=== PATIENT | male | born 2000 | race Caucasian/White ===

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

== ENCOUNTER 2020-05-27 03:21 | Day surgery (SDC) | payer BC, OTHER ==
[2020-05-27] MEDS ORDERED: Ondansetron PF 4 MG/2 ML Vial ONE ×3 (03:43→09:51)
[2020-05-27 03:52] LABS: #Basophils 0.1 thou/uL (0.0-0.2); #Eosinphils 0.3 thou/uL (0.0-0.7); #Lymphocytes 2.2 thou/uL (1.20-3.40); #Monocytes 1.6 thou/uL (0.11-0.59); #Neutrophils 13.4 thou/uL (1.40-6.50); %Basophils 0.3 % (0.0-1.0); %Eosinophils 1.7 % (0.0-10.0); %Lymphocytes 12.6 % (28.0-48.0); %Monocytes 9.2 % (0.0-4.0); %Neutrophils 76.2 % (31.0-61.0); Hemoglobin 14.7 g/dL (14.0-18.0); Mean Corpuscular HGB CONC 32.9 g/dL (32.0-36.0); Mean Corpuscular Volume 91.3 fL (78.0-98.0); Mean Platelet Volume 8.9 fL (7.4-10.4); Platelet Count 156 thou/uL (130-400); RBC Distribution Width 12.4 % (11.5-14.5); White Blood Cell (WBC) Count 17.6 thou/uL (4.8-10.8)
[2020-05-27 03:53] LABS: Bilirubin Negative (Negative); Blood, Urine Negative (Negative); Clarity Clear (Clear); Glucose, Urine (Dipstick) Normal (Negative); Ketone, Urine Negative (Negative); Leukocyte Negative Leu/uL (Negative); Nitrite Negative (Negative); Protein, Urine (Dipstick) 10 mg/dL (Neg-Trace); Specific Gravity, Urine 1.032 (1.002-1.036); Urobilinogen Normal mg/dL (Less than 2)
[2020-05-27] MEDS ORDERED: Morphine 4 MG/ML VIAL ONE (04:07)
[2020-05-27 04:16] LABS: ALT (SGPT) 18 U/L (8-55); AST (SGOT) 15 U/L (10-45); Albumin 4.6 g/dL (3.5-5.0); Alkaline Phosphatase 71 U/L (50-130); Anion Gap 12 mmol/L (10-20); BUN (Urea Nitrogen) 15 mg/dL (8.4-21.0); Bilirubin, Total 0.6 mg/dL (0.2-1.2); Calc. Creatinine Clearance 0 mL/min (70-130); Calcium 9.6 mg/dL (7.8-10.44); Carbon Dioxide 27 mmol/L (22-29); Chloride 104 mmol/L (98-107); Estimated GFR-MDRD Greater than 90; Globulin 2.6 g/dL (2.4-3.5); Glucose 114 mg/dL (70-105); Lipase 19 U/L (8-78); Potassium 3.6 mmol/L (3.5-5.1); Protein, Total 7.2 g/dL (6.0-8.3); Sodium 139 mmol/L (136-145)
[2020-05-27] MEDS ORDERED: diphenhydrAMINE 50 MG/ML VIAL ONE (05:11)
[2020-05-27] MEDS ORDERED: Metoclopramide HCl 10 MG/2 ML VIAL ONE (05:11)
[2020-05-27] MEDS ORDERED: Piperacillin/Tazobactam 3.375 GM VIAL ONE (06:12)
--- NOTE | 2020-05-27 08:18 | PDOC.GSCN ---
Surgery Consult: HPI - Consult details Date: 05/27/20 Time: 08:17 Reason for consult: appendicitis History of present illness: 05/27/20 08:17 19yo male with one day history of abdominal pain. Pain is located in the periumbilical area and characterized as "sharp and stabbing". It is rated 10/10 on a pain scale and is associated with nausea and vomiting. Presented to ER where CT was consistent with acute appendicitis. Surgery Consult: ROS - Review of Systems All systems: 10 systems reviewed and no additional complaints unless stated below. Surgery Consult: PMH Past Medical History: BPD Past Surgical History: Denies - Past Family History Family history: reviewed and not pertinent - Past Social History Smoking Status: Smoker, status unknown Alcohol Use: occasional Drug Use History: marijuana Living Situation: independent Surgery Consult: Exam - Physical Exam General: no distress, moderate pain Eye: normal ocular movement, PERRL ENT: normal mucosa, normal nares Neck: no kody distention, trachea midline Respiratory: clear to auscultation, clear to percussion Abdomen: soft, tender Integumentary: no abnormal pigmentation, no growths Neurologic: normal coordination, normal sensation Musculoskeletal: normal gait, normal posture Psychiatric: memory intact, oriented to time, oriented to person, oriented to place Surgery Consult: Meds - Allergies Allergies/Adverse Reactions: Allergies Allergy/AdvReac Type Severity Reaction Status Date / Time No Known Allergies Allergy Verified 04/09/13 12:54 Surgery Consult: Results - Labs Result Diagrams: 05/27/20 03:35 05/27/20 03:35 Lab results: Laboratory Results WBC 17.6 thou/uL (4.8-10.8) H 05/27/20 03:35 RBC 4.90 mill/uL (4.00-5.20) 05/27/20 03:35 Hgb 14.7 g/dL (14.0-18.0) 05/27/20 03:35 Hct 44.8 % (42.0-52.0) 05/27/20 03:35 MCV 91.3 fL (78.0-98.0) 05/27/20 03:35 MCH 30.0 pg (25.0-35.0) 05/27/20 03:35 MCHC 32.9 g/dL (32.0-36.0) 05/27/20 03:35 RDW 12.4 % (11.5-14.5) 05/27/20 03:35 Plt Count 156 thou/uL (130-400) 05/27/20 03:35 MPV 8.9 fL (7.4-10.4) 05/27/20 03:35 Neutrophils % 76.2 % (31.0-61.0) H 05/27/20 03:35 Lymphocytes % 12.6 % (28.0-48.0) L 05/27/20 03:35 Monocytes % 9.2 % (0.0-4.0) H 05/27/20 03:35 Eosinophils % 1.7 % (0.0-10.0) 05/27/20 03:35 Basophils % 0.3 % (0.0-1.0) 05/27/20 03:35 Neutrophils # 13.4 thou/uL (1.40-6.50) H 05/27/20 03:35 Lymphocytes # 2.2 thou/uL (1.20-3.40) 05/27/20 03:35 Monocytes # 1.6 thou/uL (0.11-0.59) H 05/27/20 03:35 Eosinophils # 0.3 thou/uL (0.0-0.7) 05/27/20 03:35 Basophils # 0.1 thou/uL (0.0-0.2) 05/27/20 03:35 Sodium 139 mmol/L (136-145) 05/27/20 03:35 Potassium 3.6 mmol/L (3.5-5.1) 05/27/20 03:35 Chloride 104 mmol/L (98-107) 05/27/20 03:35 Carbon Dioxide 27 mmol/L (22-29) 05/27/20 03:35 Anion Gap 12 mmol/L (10-20) 05/27/20 03:35 BUN 15 mg/dL (8.4-21.0) 05/27/20 03:35 Creatinine 0.85 mg/dL (0.7-1.3) 05/27/20 03:35 Estimated GFR (MDRD) Greater than 90 05/27/20 03:35 Glucose 114 mg/dL (70-105) H 05/27/20 03:35 Calcium 9.6 mg/dL (7.8-10.44) 05/27/20 03:35 Total Bilirubin 0.6 mg/dL (0.2-1.2) 05/27/20 03:35 AST 15 U/L (10-45) 05/27/20 03:35 ALT 18 U/L (8-55) 05/27/20 03:35 Alkaline Phosphatase 71 U/L (50-130) 05/27/20 03:35 Serum Total Protein 7.2 g/dL (6.0-8.3) 05/27/20 03:35 Albumin 4.6 g/dL (3.5-5.0) 05/27/20 03:35 Globulin 2.6 g/dL (2.4-3.5) 05/27/20 03:35 Albumin/Globulin Ratio 1.8 g/dL (1.2-2.2) 05/27/20 03:35 Lipase 19 U/L (8-78) 05/27/20 03:35 Urine Color Yellow (Yellow) 05/27/20 03:33 Urine Clarity Clear (Clear) 05/27/20 03:33 Urine pH 6.0 (5.0-9.0) 05/27/20 03:33 Ur Specific [place] 1.032 (1.002-1.036) 05/27/20 03:33 Urine Protein 10 mg/dL (Neg-Trace) 05/27/20 03:33 Urine Glucose (UA) Normal mg/dL (Negative) 05/27/20 03:33 Urine Ketones Negative mg/dL (Negative) 05/27/20 03:33 Urine Blood Negative (Negative) 05/27/20 03:33 Urine Nitrite Negative (Negative) 05/27/20 03:33 Urine Bilirubin Negative (Negative) 05/27/20 03:33 Urine Urobilinogen Normal mg/dL (Less than 2) 05/27/20 03:33 Ur Leukocyte Esterase Negative Riley/uL (Negative) 05/27/20 03:33 - Radiology Interpretation CT scan - abdomen Additional comments: Difficult exam due to lack of intraperitoneal fat. Dilated appendix with small amount of free fluid c/w acute appendicitis. Surgery Consult: A/P - Problem (1) Acute appendicitis Current Visit: Yes Code(s): K35.80 - UNSPECIFIED ACUTE APPENDICITIS Status: Acute - Plan Plan: 19yo male with uncomplicated appendicitis. Plan for laparoscopic appendectomy this morning. The relative risks and benefits of surgical management have been discussed in detail, specifically adressing the risks of abscess and damage to adjacent structures. Informed consent was obtained.
[2020-05-27] MEDS ORDERED: Fentanyl 100 MCG/2 ML VIAL ONE (08:24)
[2020-05-27] MEDS ORDERED: HYDROmorphone 0.5 MG/0.5 ML SYRINGE ONE (08:25)
[2020-05-27] MEDS ORDERED: Bupivacaine 0.25% HCL 30 ML VIAL ONE (08:26)
[2020-05-27] MEDS ORDERED: Lidocaine 1% w/Epinephrine 1:100K 20 ML VIAL ONE (08:26)
--- NOTE | 2020-05-27 09:10 | CT ---
CT OF THE ABDOMEN AND PELVIS WITH IV CONTRAST: INDICATION: A 19-year-old male with nausea, vomiting, and right lower quadrant abdominal pain. FINDINGS: ABDOMEN: Lung bases are clear. No focal hepatic lesion is evident. There is mild gallbladder wall thickening. The pancreas, spleen, and adrenal glands are normal-appearing. The kidneys are normal-appearing. PELVIS: A small amount of enteric contrast is seen at the level of the stomach. There are numerous unopacifi ed loops of small bowel within the abdomen limiting evaluation of the appendix. The appendix in the right lower quadrant of the abdomen measuring up to 8.9 mm on image 8 of series 2 and on image 66 of the coronal series. There is a suspected appendicolith at the base of the appendix measuring 7.5 mm. There is mild free fluid in the pelvis. The bladder is decompressed. The rectum and perirectal sof t tissues are unremarkable-appearing. OSSEOUS STRUCTURES: There is leftward curvature of the lumbar spine which may be related to spasm or mild scoliotic curva ture. No acute osseous abnormality is evident. IMPRESSION: Suspected appendicolith and dilatation of the appendix in the right lower quadrant of the abdomen is suspicious for acute appendicitis. Would recommend correlation with clinical examination. Exam deta il of the appendix is somewhat limited due to limited enteric contrast. There are numerous loops of non-opacified small bowel within the abdomen and pelvis. POS: BH
[2020-05-27] MEDS ORDERED: PROPOFOL 200 MG/20 ML VIAL ONE (09:51)
[2020-05-27] MEDS ORDERED: Dexamethasone 20 MG/5 ML VIAL ONE (09:51)
[2020-05-27] MEDS ORDERED: Rocuronium Bromide 10 MG/ML (10ML VIAL) ONE (09:51)
[2020-05-27] MEDS ORDERED: Glycopyrrolate 0.2 MG/ML 5 ML SYRINGE ONE (09:51)
[2020-05-27] MEDS ORDERED: Lidocaine 1% PF 5 ML VIAL ONE (09:51)
[2020-05-27] MEDS ORDERED: Iopamidol 370 76% 100 ML VIAL ONE (11:21)
--- NOTE | 2020-05-27 11:26 | PDOC.OP ---
Operative Note - Operative Note Operative Note: DATE OF SURGERY: 03/27/2020 SURGEON: Jonah Celeste MD PREOPERATIVE DIAGNOSIS: Acute appendicitis without abscess POSTOPERATIVE DIAGNOSIS: Acute appendicitis without abscess PROCEDURE: Laparoscopic appendectomy INDICATIONS: 19-year-old male with a 1 day history of abdominal pain associated with nausea and vomiting. Their work-up was consistent with acute appendicitis. The relative risks and benefits of laparoscopic appendectomy were discussed in detail with the patient, specifically addressing the risk of abscess formation, staple line leak, and damage to adjacent structures. Informed consent was obtained. PROCEDURE IN DETAIL: The patient was brought to the operating room and positioned supine on the operating room table. After induction of general, endotracheal anesthesia, the patient was prepared and draped in the usual fashion. Prior to beginning the procedure, a complete timeout was performed with all members of the operative team being present and in agreement. Access to the abdomen was obtained in the left upper quadrant using an optical trocar under direct visualization. The abdomen was insufflated, and additional trochars placed under direct visualization. The abdominal cavity was examined and inflammation was noted in the right lower quadrant. The appendix was located and surrounding adhesions divided to allow medial mobilization and retraction toward the abdominal wall. A window was created between the base of the appendix and the mesoappendix using blunt dissection and minimal electrocautery. The base of the appendix was identified by the confluence of the tinea. The appendix was divided using a single fire of a blue staple load. The mesoappendix was fired using a single white staple load. The specimen was placed in a retrieval bag and the abdominal cavity examined with hemostasis achieved. The bag was removed from the abdominal cavity, and the specimen passed off for pathological examination. The 12 mm trocar site fascia was closed using a 0-Vicryl tie utilizing a suture passer. The skin was closed with 4-0 Monocryl suture and dressed with skin adhesive dressing. At the conclusion of the case, all sponge and instrument counts were correct. ESTIMATED BLOOD LOSS: Minimal COMPLICATIONS: None INTRAOPERATIVE BLOOD TRANSFUSIONS: None GRAFTS / IMPLANTS: None SPECIMENS: Appendix DISPOSITION: The patient was transported to the postoperative recovery unit in good condition , to be discharged home when criteria are met.
[2020-05-27 12:42] LABS: SARS-CoV-2 MS2 Positive; SARS-CoV-2 N Gene Negative; SARS-CoV-2 S Gene Negative; SARS-CoV-2 by NAA Not Detected (NotDetected); SARS-CoV-2 orf1ab Negative
== END 2020-05-27 12:24 | disposition home or self-care (01) ==
LOC: ERS 03:21 → SDC 07:25
PROVIDERS: ATTEND Surgery
PROC: 0DTJ4ZZ Resection of Appendix, Percutaneous Endoscopic Approach (ICD-10-PCS; principal; 2020-05-27)
DX: K35.33 Acute appendicitis with perforation, localized peritonitis, and gangrene, with abscess (principal)
CPT/HCPCS: 74177; 80053; 81003; 83690; 85025; 87635; 88304; 96361; 96365; 96367; 96375; 96376; J1100; J1170; J1200; J2270; J2405; J2543; J2704; J2765; J3010; Q9967; S0020; U0003

== ENCOUNTER 2021-02-12 20:31 | Emergency (ER) | payer BC, SELFPAY ==
[2021-02-12 21:56] LABS: Amphetamine Not Detected (NotDetected); Barbiturates Screen Not Detected (NotDetected); Benzodiazepine Screen Not Detected (NotDetected); Cocaine Metabolite Screen Not Detected (NotDetected); Medtox Reader # READER 1; Methadone Not Detected (NotDetected); Methamphetamine Not Detected (NotDetected); Opiate Screen Not Detected (NotDetected); Oxycodone Screen Not Detected (NotDetected); Phencyclidine (PCP) Not Detected (NotDetected); THC/Cannabinoid Screen Detected (NotDetected); Tricyclic Screen Not Detected (NotDetected)
[2021-02-12 21:57] LABS: Medtox Control Line Valid? VALID (VALID)
[2021-02-12 22:22] LABS: #Basophils 0.1 thou/uL (0.0-0.2); #Eosinphils 0.2 thou/uL (0.0-0.7); #Lymphocytes 2.2 thou/uL (1.20-3.40); #Neutrophils 6.1 thou/uL (1.40-6.50); %Basophils 0.7 % (0.0-1.0); %Eosinophils 2.1 % (0.0-10.0); %Lymphocytes 23.4 % (28.0-48.0); %Monocytes 10.1 % (0.0-4.0); %Neutrophils 63.9 % (31.0-61.0); Hemoglobin 13.5 g/dL (14.0-18.0); Mean Corpuscular HGB CONC 32.7 g/dL (32.0-36.0); Mean Corpuscular Hemoglobin 29.8 pg (25.0-35.0); Mean Corpuscular Volume 91.1 fL (78.0-98.0); Platelet Count 176 thou/uL (130-400); RBC Distribution Width 12.1 % (11.5-14.5); Red Blood Cell (RBC) Count 4.52 mill/uL (4.00-5.20); White Blood Cell (WBC) Count 9.5 thou/uL (4.8-10.8)
[2021-02-12 22:42] LABS: ALT (SGPT) 10 U/L (8-55); AST (SGOT) 14 U/L (5-34); Alcohol Less than 10 mg/dL (Less than 10); Alkaline Phosphatase 75 U/L (50-130); Anion Gap 10 mmol/L (10-20); BUN (Urea Nitrogen) 15 mg/dL (8.9-20.6); Bilirubin, Total 0.5 mg/dL (0.2-1.2); Calc. Creatinine Clearance 0 mL/min (70-130); Calcium 8.9 mg/dL (7.8-10.44); Carbon Dioxide 26 mmol/L (22-29); Chloride 109 mmol/L (98-107); Globulin 2.4 g/dL (2.4-3.5); Glucose 128 mg/dL (70-105); Potassium 3.4 mmol/L (3.5-5.1); Protein, Total 6.4 g/dL (6.0-8.3); Salicylate Less than 8.0 mg/dL (15.0-30.0); Sodium 142 mmol/L (136-145)
== END 2021-02-13 05:00 | disposition home or self-care (01) ==
LOC: ERS 20:31
DX: T39.1X2A Poisoning by 4-Aminophenol derivatives, intentional self-harm, initial encounter (principal); F17.210 Nicotine dependence, cigarettes, uncomplicated
CPT/HCPCS: 36415; 80053; 80306; 80307; 84443; 85025; 93005

== ENCOUNTER 2023-12-09 11:51 | Emergency (ER) | payer BC ==
[2023-12-09 13:32] LABS: SARS-CoV-2 NAA Rapid Test Not Detected (NotDetected)
== END 2023-12-09 13:50 | disposition home or self-care (01) ==
LOC: ERS 11:51
DX: J10.1 Influenza due to other identified influenza virus with other respiratory manifestations (principal); F17.210 Nicotine dependence, cigarettes, uncomplicated
CPT/HCPCS: 87081; 87430; 99283

== ENCOUNTER 2024-09-05 13:05 | Emergency (ER) | payer BC | END 2024-09-05 14:59 | disposition home or self-care (01) | LOC: ERS 13:05 | DX: S93.401A Sprain of unspecified ligament of right ankle, initial encounter (principal); F17.210 Nicotine dependence, cigarettes, uncomplicated; X50.1XXA Overexertion from prolonged static or awkward postures, initial encounter | CPT/HCPCS: 99283 ==